=== PATIENT | male | born 1985 | race Caucasian/White ===

== ENCOUNTER 2019-03-05 | Observation (INO) | payer SELFPAY ==
--- NOTE | 2019-03-05 12:46 | NUR ---
PT TO ROOM WITH STEADY GAIT
[2019-03-05 13:15] LABS: HEMATOCRIT 42.5 % (39.0-50.0); HEMOGLOBIN 13.5 g/dl (14.0-18.0); IMMATURE GRANULOCYTES 0.6 % (0.0-5.0); MEAN CELL VOLUME 89.1 fL CALC (80.0-100.0); MEAN CORPUSCULAR HGB 28.3 pG CALC (26.0-32.0); MEAN CORPUSCULAR HGB CONC 31.8 g/L CALC (32.0-36.0); NEUT# 7.01 thou/uL (1.82-7.42); RED BLOOD COUNT 4.77 mill/uL (4.70-6.10); RED CELL DISTRI WIDTH 13.9 % (11.5-15.5)
[2019-03-05 13:29] LABS: ALBUMIN 3.8 g/dL (3.2-5.0); ALKALINE PHOSPHATASE 60 u/l (38-126); ANION GAP 11 (6-22 (CALC)); BILIRUBIN, TOTAL 0.3 mg/dL (0.0-1.4); BUN 6 mg/dL (9-20); BUN/CREATININE RATIO 7 (12-20 (CALC)); CARBON DIOXIDE 27 mmol/l (22-30); CHLORIDE 107 mmol/l (95-108); CREATININE 0.9 mg/dL (0.7-1.3); GFR > 60 ML/MIN (>=60 (CALC)); GFR FOR AFR.AMER. > 60 ML/MIN (>=60 (CALC)); POTASSIUM 4.2 mmol/l (3.5-5.1); SGOT/AST 16 u/l (17-59); SODIUM 140 mmol/l (137-146); TOTAL PROTEIN 6.8 g/dL (6.3-8.2)
--- NOTE | 2019-03-05 13:46 | NUR ---
PT RESTING ON STRETCHER, NO COMPLAINTS STATED
--- NOTE | 2019-03-05 14:41 | NUR ---
PT WATCHING TV, IV PATENT WITH ANTIBIOITCS RUNNING.
--- NOTE | 2019-03-05 15:41 | NUR ---
PT RESTING ON STRETCHER, PAIN MEDICATION GIVEN. IV PATENT WITH ANTIBIOTICS RUNNING.
--- NOTE | 2019-03-05 15:46 | NUR ---
MD AT BEDSIDE TO DISCUSS RESULTS.
--- NOTE | 2019-03-05 16:45 | NUR ---
PT AMBULATED TO RESTROOM AND BACK TO ROOM WITH STEADY GAIT
--- NOTE | 2019-03-05 17:45 | NUR ---
PT RESTING ON STRETCHER, NO COMPLAINTS STATED AT THIS TIME.
--- NOTE | 2019-03-05 18:14 | NUR ---
REPORT CALLED TO [facility]- MELONIE FONG ACCEPTED PT
--- NOTE | 2019-03-05 18:18 | NUR ---
PT ADMITTED TO [facility] FROM ED VIA WC. PT TRANSFERRED SELF. PT ADMITTED FOR CELLULITIS TO LLE. PT A&OX4, ABLE TO MAKE NEEDS KNOWN. FAMILY AT BEDSIDE WITH PT. PT STATED 8/10 PAIN IN LOWER BACK AND LLE. NEW ORDERS RECIEVED, WILL MEDICATE. PT AFEBRILE AT THIS TIME. PT ORIENTED TO ROOM, UNIT AND CALL LIGHT . DINNER TRAY DELIVERED FOR PT. CALL LIGHT IN REACH. WILL MONITOR.
--- NOTE | 2019-03-05 18:24 | NUR ---
Admission Note Report Given to: MELONIE FONG Transported by: X Wheelchair Stretcher Transported with: X Nurse Transporter X Patent IV O2 Preconstruction Manager Location: ICU X [facility] TRANSPORTED TO 282 WITHOUT INCIDENT
[2019-03-05 18:26] VITALS: BP 156/87
--- NOTE | 2019-03-05 18:50 | NUR ---
PT MEDICATED FOR 8/10 PAIN TO LOWER BACK AND LLE. CALL LIGHT IN REACH. WILL MONITOR.
--- NOTE | 2019-03-06 | NUR ---
PATIENT A/OX4, NO S/S RESP DISTRESS, NO C/O PAIN, PATIENT IV ANTIBOTICS INFUSING WITHOUT COMPLICATIONS, PATIENT TOLERATING IV ANTIBOTICS, WILL CONTINUE TO MONITOR PATIENT HOURLY ROUNDING, CALL LIGHT WITHIN REACH
[2019-03-06 04:00] VITALS: BP 150/99
--- NOTE | 2019-03-06 04:30 | NUR ---
PATIENT RESTING NO S/S RESP DISTRESS, NO S/S PAIN AFTER PAIN MED, IVF INFUSING WILL CONTINUE TO MONITOR PATIENT, CALL LIGHT WITHIN REACH
[2019-03-06 05:41] LABS: HEMATOCRIT 40.8 % (39.0-50.0); HEMOGLOBIN 12.7 g/dl (14.0-18.0); MEAN CELL VOLUME 90.1 fL CALC (80.0-100.0); MEAN CORPUSCULAR HGB CONC 31.1 g/L CALC (32.0-36.0); RED BLOOD COUNT 4.53 mill/uL (4.70-6.10); RED CELL DISTRI WIDTH 13.8 % (11.5-15.5)
[2019-03-06 05:59] LABS: ANION GAP 9 (6-22 (CALC)); BUN 7 mg/dL (9-20); BUN/CREATININE RATIO 9 (12-20 (CALC)); CARBON DIOXIDE 27 mmol/l (22-30); CHLORIDE 108 mmol/l (95-108); CREATININE 0.8 mg/dL (0.7-1.3); GFR > 60 ML/MIN (>=60 (CALC)); GFR FOR AFR.AMER. > 60 ML/MIN (>=60 (CALC)); POTASSIUM 4.1 mmol/l (3.5-5.1); SODIUM 140 mmol/l (137-146)
--- NOTE | 2019-03-06 07:05 | NUR ---
REPORT RECEIVED FROM AJIT FOX;PT APPEARS TO BE SLEEPING IN SUPINE POSITION;NO S/S OF DISTRESS NOTED;RESPIRATIONS EVEN AND UNLABORED ON RA;IV FLUIDS INFUSING WITH EASE PER ORDER;ALL SAFETY PRECAUTIONS IN PLACE WITH BED IN THE LOWEST POSITION WITH CALL LIGHT IN REACH;WILL CONTINUE TO MONITOR
--- NOTE | 2019-03-06 08:00 | NUR ---
PT RESTING IN SEMI FOWLERS POSITION,A&O X3;VS OBTAINED AND ASSESSMENT COMPLETED;PT REPORTS LLE PAIN RATING 7/10 ON THE PAIN SCALE AND REQUESTS PAIN MEDICATION,PT TO BE MEDICATED WITH PRN TORADOL 30MG IVP PER ORDER;RESPIRATIONS EVEN AND UNLABORED ON RA,CLEAR LUNG SOUNDS;ABDOMEN DISTENDED/SOFT ON PALPATION AND ACTIVE IN ALL 4 QUADRANTS;WEAK LEFT PEDAL PULSE,RIGHT ABSENT DUE TO PROSTHETIC;SLIGHT REDDENING NOTED TO LLE AND +2 EDEMA ,ENCOURAGED ELEVATION; #20G TO LAC INFUSING NS @ 100ML/HR,SITE APPEARS HEALTHY;400CC OF CLEAR/YELLOW URINE EMPTIED FROM URINAL;PT DENIES ANY ADDITIONAL NEEDS AT THIS TIME AND IS ENCOURAGED TO CALL FOR ASSISTANCE IF NEEDED;FALL PRECAUTIONS IN PLACE WITH CALL LIGHT IN REACH;WILL CONTINUE TO MONITOR
[2019-03-06 08:03] VITALS: BP 170/94
--- NOTE | 2019-03-06 09:00 | NUR ---
CURRENT BP 169/110 HR 80, PT DENIES HX OF HTN;NO PRN ORDERS AT THIS TIME FOR ELEVATED BP;SATYA,ANRP TO BE NOTIFIED.
[2019-03-06 09:02] VITALS: BP 169/110
--- NOTE | 2019-03-06 09:59 | NUR ---
SATYA,ANRP AT BEDSIDE DISCUSSING POC.
--- NOTE | 2019-03-06 10:32 | NUR ---
PT MEDICATED WITH PRN LORTAB 10/325MG PO FOR LLE PAIN RATING 7/10 ON THE PAIN SCALE,WILL CONTINUE TO MONITOR FOR EFFECTIVENESS
[2019-03-06 11:05] VITALS: BP 179/74
--- NOTE | 2019-03-06 11:05 | NUR ---
PT RESTING IN SEMI FOWLERS POSITION;RESPIRATIONS EVEN AND UNLABORED ON RA;PT REPORTS THAT LLE PAIN HAS DECREASED SOME SINCE PAIN MEDICATION ADMINISTRATION;IV ABX INFUSING WITH EASE PER ORDER;BP RE-CHECK 179/74 HR 84;PT DENIES ANY ADDITIONAL NEEDS AT THIS TIME AND IS ENCOURAGED TO CALL FOR ASSISTANCE IF NEEDED;CALL LIGHT IN REACH;WILL CONTINUE TO MONITOR
[2019-03-06 12:14] VITALS: BP 180/101
--- NOTE | 2019-03-06 12:15 | NUR ---
PT BP RE-CHECK 180/101 HR 86, PT TO BE MEDICATED WITH PRN APRESOLINE 10MG IVP BY AJIT HOLT;WILL CONTINUE TO MONITOR FOR EFFECTIVENESS
--- NOTE | 2019-03-06 13:25 | NUR ---
BP RE-CHECK 159/82
[2019-03-06 13:26] VITALS: BP 159/82
--- NOTE | 2019-03-06 13:40 | NUR ---
AT BEDSIDE DISCUSSING POC.
--- NOTE | 2019-03-06 13:46 | NUR ---
CRITIAL LACTIC ACID RECEIVED RESULTING IN 2.2. NOTIFIED AND NO NEW ORDERS RECEIVED AT THIS TIME;WILL CONTINUE TO MONITOR
--- NOTE | 2019-03-06 14:21 | NUR ---
S: GRANT MAN is a 33 M who presents with <problem>. He has a history of CELLULITIS. All medications in patient's chart were reviewed. O: VS: BP <159/82>, P<86>, RR<18>,T<97.8> W <137 kg>, HT<68 IN>, Scr= 0.8,CrCl= >150ml/min> A: Blood culture <is pending Urine culture <is pending P: Patient is on CEFEPIME 2 GRAM Q12H AND VANCO . Vancomycin ordered for pharmacy to dose. Start Vancomycin 2 GRAMS IV Q12H. Vancomycin trough is drawn before the 4th dose on 03/07/19 @0930 . Vancomycin goal trough is between <10-15 mcg/ml>. Pharmacy will follow and or advise on antibiotics use as needed.
[2019-03-06] MEDS ORDERED: TRAMADOL HCL50 MG PO (14:29)
[2019-03-06] MEDS ORDERED: BACTRIM DS1 TAB PO (14:29)
[2019-03-06] MEDS ORDERED: ZESTRIL10 M1 PO (15:02)
--- NOTE | 2019-03-06 15:20 | NUR ---
ALL DISCHARGE INSTRUCTIONS PROVIDED AT THIS TIME;PT INSTRUCTED TO TAKE MEDICATION PRESCRIBED,F/U WITH PCP, AND MONITOR BP;RX FOR LISINIPRIL AND TRAMADOL PROVIDED;PT DENIES ANY ADDITIONAL QUESTIONS OR NEEDS;IV SITE REMOVED WITH CATHETER INTACT;PT REFUSES WHEELCHAIR FOR D/C HOME;FRIEND TO TRANSPORT PT HOME.
--- NOTE | 2019-03-06 15:24 | NUR ---
Discharge instructions given. Patient verbalizes understanding of same. Discharged in stable condition via Ambulatory to Home with friend. All belongings sent with pt. PT AMBULATED WITH A STEADY GAIT TO LOBBY FOR D/C HOME ACCOMPANIED BY FRIEND.FRIEND TO TRANSPORT PT HOME.
== END 2019-03-06 15:26 | disposition home or self-care (01) | DRG 603 ==
PROVIDERS: Nurse Practitioner Family; ADMIT Internal Medicine
DX: L03.116 Cellulitis of left lower limb (principal); F17.200 Nicotine dependence, unspecified, uncomplicated
CPT/HCPCS: G0378; J0692